=== PATIENT | female | born 1935 | race Caucasian/White ===

== ENCOUNTER 2023-10-04 20:03 | Inpatient (IN) | payer MEDICARE, OTHER ==
[2023-10-04] MEDS ORDERED: IPRATROPIUM-ALBUTEROL 3 ML NEB INHALATION STA (21:42)
[2023-10-04] MEDS ORDERED: SODIUM CHLORIDE 0.9% 500 ML 500 ML IV ONE (21:42)
--- NOTE | 2023-10-04 21:43 | ED ---
General Adult HPI - General Chief complaint: Urogenital Stated complaint: UTI Time Seen by Provider: 10/04/23 21:28 Source: EMS, RN notes reviewed Mode of arrival: EMS Limitations: no limitations - History of Present Illness Initial comments: 87-year-old female presents emergency Department with chief complaint of UTI, weakness symptoms started today. Patient's granddaughter in the room states that she was on Macrobid for UTI 2 weeks ago. She states that she was started on Bactrim today. Patient admits to feeling generally weak and fatigued. She also admits to some increased shortness of breath with movement. She also admit to recent cough and chills. She does have history of COPD. - Related Data Home Medications Medication Instructions Recorded Confirmed Aspirin EC [Ecotrin Low Dose] 81 mg PO DAILY 10/04/23 10/04/23 Azelastine HCl [Astelin Nasal 1 spray EA NOSTRIL BID 10/04/23 10/04/23 [place]] Cyclobenzaprine [Flexeril] 10 mg PO BID PRN 10/04/23 10/04/23 Fluticasone Nasal [place] [Flonase 2 spray EA NOSTRIL DAILY 10/04/23 10/04/23 Nasal [place]] Ipratropium/Albuter 20-100Mcg 1 puff INHALATION RT-BID 10/04/23 10/04/23 [Combivent Respimat 20-100Mcg Inhaler] Loratadine [Claritin] 10 mg PO DAILY PRN 10/04/23 10/04/23 OXcarbazepine [Trileptal] 600 mg PO BID 10/04/23 10/04/23 Pramipexole [Mirapex] 2 mg PO DAILY PRN 10/04/23 10/04/23 Pravastatin Sodium [Pravachol] 20 mg PO DAILY 10/04/23 10/04/23 Sulfamethox-Tmp 800-160Mg [Bactrim 1 tab PO Q12HR 10/04/23 10/04/23 DS 800-160 mg] Tolterodine ER [Detrol LA] 4 mg PO DAILY 10/04/23 10/04/23 atenoloL [Tenormin] 50 mg PO DAILY 10/04/23 10/04/23 oxyCODONE-APAP 7.5-325MG [Percocet 1 tab PO BID 10/04/23 10/04/23 7.5-325 mg] Allergies Allergy/AdvReac Type Severity Reaction Status Date / Time Tetanus Vaccines and Toxoid Allergy Unknown Verified 10/04/23 22:57 Childhood Review of Systems ROS Statement: Those systems with pertinent positive or pertinent negative responses have been documented in the HPI. ROS Other: All systems not noted in ROS Statement are negative. Past Medical History Past Medical History: Unable to Obtain History of Any Multi-Drug Resistant Organisms: Unobtainable Past Surgical History: Unable to Obtain Past Psychological History: Unable to Obtain Smoking Status: Current every day smoker Past Alcohol Use History: None Reported Past Drug Use History: None Reported General Exam Limitations: no limitations General appearance: alert, in no apparent distress Head exam: Present: atraumatic, normocephalic, normal inspection Eye exam: Present: normal appearance, PERRL, EOMI. Absent: scleral icterus, conjunctival injection, periorbital swelling ENT exam: Present: normal exam, mucous membranes moist Neck exam: Present: normal inspection. Absent: tenderness, meningismus, lymphadenopathy Respiratory exam: Present: wheezes Cardiovascular Exam: Present: regular rate, normal rhythm, normal heart sounds. Absent: systolic murmur, diastolic murmur, rubs, gallop, clicks GI/Abdominal exam: Present: soft, normal bowel sounds. Absent: distended, tenderness, guarding, rebound, rigid Extremities exam: Present: normal inspection, full ROM, normal capillary refill. Absent: tenderness, pedal edema, joint swelling, calf tenderness Back exam: Present: normal inspection Neurological exam: Present: alert, oriented X3 Psychiatric exam: Present: normal affect, normal mood Skin exam: Present: warm, dry, intact, normal color. Absent: rash Course Vital Signs 10/04/23 10/04/23 10/04/23 20:09 22:26 22:32 Temperature 98.5 F Pulse Rate 91 96 99 Respiratory 20 Rate Blood Pressure O2 Sat by Pulse 96 Oximetry 10/04/23 10/04/23 10/05/23 23:00 23:47 00:49 Temperature 99.8 F H 98.1 F Pulse Rate 91 93 Respiratory 19 17 Rate Blood Pressure 138/84 126/74 O2 Sat by Pulse 94 L 95 Oximetry Medical Decision Making - Medical Decision Making Was pt. sent in by a medical professional or institution (Dr., PA, [employer], urgent care, hospital, or fci...) When possible be specific @ -No Did you speak to anyone other than the patient for history (EMS, parent, family, police, friend...)? What history was obtained from this source @ -No Did you review nursing and triage notes (agree or disagree)? Why? @ -I reviewed and agree with nursing and triage notes Were old charts reviewed (outside hosp., previous admission, EMS record, old EKG, old radiological studies, urgent care reports/EKG's, fci records)? Report findings @ -No old charts were reviewed Differential Diagnosis (chest pain, altered mental status, abdominal pain women, abdominal pain men, vaginal bleeding, weakness, fever, dyspnea, syncope, headache, dizziness, GI bleed, back pain, seizure, CVA, palpatations, mental health, musculoskeletal)? @ -Differential Weakness: Hypoglycemia, shock, sepsis, hyponatremia, anemia, infection, MA, ETOH, adverse medicine reaction, overdose, stroke, this is not meant to be an all-inclusive list. EKG interpreted by me (3pts min.). @ -EKG at 2214 shows sinus rhythm rate 82, MI 136, QRS 80, QTQTc [id number] X-rays interpreted by me (1pt min.). @ -Chest x-ray shows. Small patchy opacities in the right upper lung and left mid to lower lung laterally, possible nodules, airspace disease versus overlapping structures as interpreted by the radiologist CT interpreted by me (1pt min.). @ -None done U/S interpreted by me (1pt. min.). @ -None done What testing was considered but not performed or refused? (CT, X-rays, U/S, labs)? Why? @ -None What meds were considered but not given or refused? Why? @ -None Did you discuss the management of the patient with other professionals (professionals i.e. [facility], [employer], lab, RT, psych nurse, mental health social worker, russian rubber, teacher, chief growth officer, family independence case manager)? Give summary @ -Case discussed with Dr. Alan who is accepting of the admission Was smoking cessation discussed for >3mins.? @ -No Was critical care preformed (if so, how long)? @ -No Were there social determinants of health that impacted care today? How? (Homelessness, low income, unemployed, alcoholism, drug addiction, transportation, low edu. Level, literacy, decrease access to med. care, senior living, rehab)? @ -No Was there de-escalation of care discussed even if they declined (Discuss DNR or withdrawal of care, Hospice)? DNR status @ -No What co-morbidities impacted this encounter? (DM, HTN, Smoking, COPD, CAD, Cancer, CVA, ARF, Chemo, Hep., AIDS, mental health diagnosis, sleep apnea, morbid obesity)? @ -None Was patient admitted / discharged? Hospital course, mention meds given and route, prescriptions, significant lab abnormalities, going to OR and other pertinent info. @ -Admitted. Patient presented to emergency department for chief complaint of UTI, weakness. Symptoms started today. Laboratory studies showed WBC 12.3, hemoglobin 11.3; PTT 11.1, INR 1; CMP shows sodium 132, potassium 3.1. Patient was started on potassium replacement, K-Dur 20 milligrams. Magnesium 1.7 BNP 2230; Covid, influenza, RSV negative; UA shows 1+ protein, moderate blood, large leukocyte esterase, 161 wbc's. She will be admitted for IV antibiotics, electrolyte abnormalities. Case discussed with Dr. Alan who is accepting of the admission. Patient stable at time of admission. Case discussed with Dr. Pittman, [facility]. Undiagnosed new problem with uncertain prognosis? @ -No Drug Therapy requiring intensive monitoring for toxicity (Heparin, Nitro, Insulin, Cardizem)? @ -No Were any procedures done? @ -No Diagnosis/symptom? @ -UTI, pneumonia Acute, or Chronic, or Acute on Chronic? @ -acute Uncomplicated (without systemic symptoms) or Complicated (systemic symptoms)? @ -uncomplicated Side effects of treatment? @ -No Exacerbation, Progression, or Severe Exacerbation? @ -No Poses a threat to life or bodily function? How? (Chest pain, USA, MA, pneumonia, PE, COPD, DKA, ARF, appy, cholecystitis, CVA, Diverticulitis, Homicidal, Suicidal, threat to staff... and all critical care pts) @ -No - Lab Data Result diagrams: 10/04/23 21:53 10/04/23 21:53 Lab Results 10/04/23 10/04/23 10/04/23 Range/Units 21:53 21:53 21:53 WBC 12.3 H (3.8-10.6) k/uL RBC 3.43 L (3.80-5.40) m/uL Hgb 11.3 L (11.4-16.0) gm/dL Hct 33.0 L (34.0-46.0) % MCV 96.2 (80.0-100.0) fL MCH 32.9 (25.0-35.0) pg MCHC 34.2 (31.0-37.0) g/dL RDW 13.8 (11.5-15.5) % Plt Count 173 (150-450) k/uL MPV 10.4 Neutrophils % 82 % Lymphocytes % 10 % Monocytes % 5 % Eosinophils % 1 % Basophils % 0 % Neutrophils # 10.1 H (1.3-7.7) k/uL Lymphocytes # 1.3 (1.0-4.8) k/uL Monocytes # 0.6 (0-1.0) k/uL Eosinophils # 0.1 (0-0.7) k/uL Basophils # 0.0 (0-0.2) k/uL PT 11.1 (10.0-12.5) sec INR 1.0 (<1.2) APTT 24.6 (22.0-30.0) sec Sodium 132 L (137-145) mmol/L Potassium 3.1 L (3.5-5.1) mmol/L Chloride 102 (98-107) mmol/L Carbon Dioxide 19 L (22-30) mmol/L Anion Gap 11 mmol/L BUN 19 H (7-17) mg/dL Creatinine 0.79 (0.52-1.04) mg/dL Est GFR (CKD-EPI)AfAm 80 (>60 ml/min/1.73 sqM) Est GFR (CKD-EPI)NonAf 69 (>60 ml/min/1.73 sqM) Glucose 125 H (74-99) mg/dL Plasma Lactic Acid Cristóbal (0.7-2.0) mmol/L Calcium 8.4 (8.4-10.2) mg/dL Magnesium (1.6-2.3) mg/dL Total Bilirubin 1.0 (0.2-1.3) mg/dL AST 26 (14-36) U/L ALT 23 (4-34) U/L Alkaline Phosphatase 56 (38-126) U/L NT-Pro-B Natriuret Pep 2230 pg/mL Total Protein 5.8 L (6.3-8.2) g/dL Albumin 3.1 L (3.5-5.0) g/dL Urine Color Urine Appearance (Clear) Urine pH (5.0-8.0) Ur Specific [place] (1.001-1.035) Urine Protein (Negative) Urine Glucose (UA) (Negative) Urine Ketones (Negative) Urine Blood (Negative) Urine Nitrite (Negative) Urine Bilirubin (Negative) Urine Urobilinogen (<2.0) mg/dL Ur Leukocyte Esterase (Negative) Urine RBC (0-5) /hpf Urine WBC (0-5) /hpf Urine WBC Clumps (None) /hpf Ur Squamous Epith Cells (0-4) /hpf Amorphous Sediment (None) /hpf Urine Bacteria (None) /hpf Hyaline Casts (0-2) /lpf Influenza Type A (PCR) (Not Detectd) Influenza Type B (PCR) (Not Detectd) RSV (PCR) (Not Detectd) SARS-CoV-2 (PCR) (Not Detectd) 10/04/23 10/04/23 10/04/23 Range/Units 21:53 21:53 22:34 WBC (3.8-10.6) k/uL RBC (3.80-5.40) m/uL Hgb (11.4-16.0) gm/dL Hct (34.0-46.0) % MCV (80.0-100.0) fL MCH (25.0-35.0) pg MCHC (31.0-37.0) g/dL RDW (11.5-15.5) % Plt Count (150-450) k/uL MPV Neutrophils % % Lymphocytes % % Monocytes % % Eosinophils % % Basophils % % Neutrophils # (1.3-7.7) k/uL Lymphocytes # (1.0-4.8) k/uL Monocytes # (0-1.0) k/uL Eosinophils # (0-0.7) k/uL Basophils # (0-0.2) k/uL PT (10.0-12.5) sec INR (<1.2) APTT (22.0-30.0) sec Sodium (137-145) mmol/L Potassium (3.5-5.1) mmol/L Chloride (98-107) mmol/L Carbon Dioxide (22-30) mmol/L Anion Gap mmol/L BUN (7-17) mg/dL Creatinine (0.52-1.04) mg/dL Est GFR (CKD-EPI)AfAm (>60 ml/min/1.73 sqM) Est GFR (CKD-EPI)NonAf (>60 ml/min/1.73 sqM) Glucose (74-99) mg/dL Plasma Lactic Acid Crist[place]bal 1.0 (0.7-2.0) mmol/L Calcium (8.4-10.2) mg/dL Magnesium 1.7 (1.6-2.3) mg/dL Total Bilirubin (0.2-1.3) mg/dL AST (14-36) U/L ALT (4-34) U/L Alkaline Phosphatase (38-126) U/L NT-Pro-B Natriuret Pep pg/mL Total Protein (6.3-8.2) g/dL Albumin (3.5-5.0) g/dL Urine Color Urine Appearance (Clear) Urine pH (5.0-8.0) Ur Specific [place] (1.001-1.035) Urine Protein (Negative) Urine Glucose (UA) (Negative) Urine Ketones (Negative) Urine Blood (Negative) Urine Nitrite (Negative) Urine Bilirubin (Negative) Urine Urobilinogen (<2.0) mg/dL Ur Leukocyte Esterase (Negative) Urine RBC (0-5) /hpf Urine WBC (0-5) /hpf Urine WBC Clumps (None) /hpf Ur Squamous Epith Cells (0-4) /hpf Amorphous Sediment (None) /hpf Urine Bacteria (None) /hpf Hyaline Casts (0-2) /lpf Influenza Type A (PCR) Not Detected (Not Detectd) Influenza Type B (PCR) Not Detected (Not Detectd) RSV (PCR) Not Detected (Not Detectd) SARS-CoV-2 (PCR) Not Detected (Not Detectd) 10/05/23 Range/Units 00:29 WBC (3.8-10.6) k/uL RBC (3.80-5.40) m/uL Hgb (11.4-16.0) gm/dL Hct (34.0-46.0) % MCV (80.0-100.0) fL MCH (25.0-35.0) pg MCHC (31.0-37.0) g/dL RDW (11.5-15.5) % Plt Count (150-450) k/uL MPV Neutrophils % % Lymphocytes % % Monocytes % % Eosinophils % % Basophils % % Neutrophils # (1.3-7.7) k/uL Lymphocytes # (1.0-4.8) k/uL Monocytes # (0-1.0) k/uL Eosinophils # (0-0.7) k/uL Basophils # (0-0.2) k/uL PT (10.0-12.5) sec INR (<1.2) APTT (22.0-30.0) sec Sodium (137-145) mmol/L Potassium (3.5-5.1) mmol/L Chloride (98-107) mmol/L Carbon Dioxide (22-30) mmol/L Anion Gap mmol/L BUN (7-17) mg/dL Creatinine (0.52-1.04) mg/dL Est GFR (CKD-EPI)AfAm (>60 ml/min/1.73 sqM) Est GFR (CKD-EPI)NonAf (>60 ml/min/1.73 sqM) Glucose (74-99) mg/dL Plasma Lactic Acid [place] (0.7-2.0) mmol/L Calcium (8.4-10.2) mg/dL Magnesium (1.6-2.3) mg/dL Total Bilirubin (0.2-1.3) mg/dL AST (14-36) U/L ALT (4-34) U/L Alkaline Phosphatase (38-126) U/L NT-Pro-B Natriuret Pep pg/mL Total Protein (6.3-8.2) g/dL Albumin (3.5-5.0) g/dL Urine Color Light Red Urine Appearance Turbid H (Clear) Urine pH 7.0 (5.0-8.0) Ur Specific [place] 1.012 (1.001-1.035) Urine Protein 1+ H (Negative) Urine Glucose (UA) Negative (Negative) Urine Ketones Negative (Negative) Urine Blood Moderate H (Negative) Urine Nitrite Negative (Negative) Urine Bilirubin Negative (Negative) Urine Urobilinogen 4.0 (<2.0) mg/dL Ur Leukocyte Esterase Large H (Negative) Urine RBC 20 H (0-5) /hpf Urine WBC 161 H (0-5) /hpf Urine WBC Clumps Rare H (None) /hpf Ur Squamous Epith Cells 17 H (0-4) /hpf Amorphous Sediment Rare H (None) /hpf Urine Bacteria Many H (None) /hpf Hyaline Casts 5 H (0-2) /lpf Influenza Type A (PCR) (Not Detectd) Influenza Type B (PCR) (Not Detectd) RSV (PCR) (Not Detectd) SARS-CoV-2 (PCR) (Not Detectd) Disposition Clinical Impression: Urinary tract infection, Infiltrate noted on imaging study Disposition: ADMITTED IP TO THIS HOSP Condition: Stable Is patient prescribed a controlled substance at d/c from ED?: No Referrals: Nonstaff,Physician [REFERRING] - 1-2 days
[2023-10-04 22:17] LABS: Basophils % (A) 0 %; Eosinophils # (A) 0.1 k/uL (0-0.7); Eosinophils % (A) 1 %; HGB 11.3 gm/dL (11.4-16.0); Lymphocytes # (A) 1.3 k/uL (1.0-4.8); Lymphocytes % (A) 10 %; MCH 32.9 pg (25.0-35.0); MCHC 34.2 g/dL (31.0-37.0); MCV 96.2 fL (80.0-100.0); Mean Platelet Volume 10.4; Monocytes # (A) 0.6 k/uL (0-1.0); Monocytes % (A) 5 %; Neutrophils # (A) 10.1 k/uL (1.3-7.7); Neutrophils % (A) 82 %; Platelet Count 173 k/uL (150-450); RBC 3.43 m/uL (3.80-5.40); RDW 13.8 % (11.5-15.5); WBC 12.3 k/uL (3.8-10.6)
[2023-10-04 22:30] LABS: ALT 23 U/L (4-34); AST 26 U/L (14-36); African American GFR (CKD) 80 (>60 ml/min/1.73 sqM); Albumin 3.1 g/dL (3.5-5.0); Alkaline Phosphatase 56 U/L (38-126); Anion Gap 11 mmol/L; Blood Urea Nitrogen 19 mg/dL (7-17); Calcium 8.4 mg/dL (8.4-10.2); Carbon Dioxide 19 mmol/L (22-30); Chloride 102 mmol/L (98-107); Glucose 125 mg/dL (74-99); Non-African American GFR(CKD) 69 (>60 ml/min/1.73 sqM); Potassium 3.1 mmol/L (3.5-5.1); Sodium 132 mmol/L (137-145); Total Protein 5.8 g/dL (6.3-8.2)
[2023-10-04] MEDS ORDERED: Potassium Replacement Protocol 1 EACH MISC MISCELLANE PRN (22:32)
[2023-10-04 22:37] LABS: Partial Thromboplastin Time 24.6 sec (22.0-30.0); Prothrombin Time 11.1 sec (10.0-12.5)
[2023-10-04 22:38] LABS: NT-Pro-B-Type Natriuretic Pept 2230 pg/mL
[2023-10-04] MEDS: POTASSIUM CHLORIDE ER 20 MEQ TAB.ER PO SCH (22:45)
[2023-10-04] MEDS ORDERED: ACETAMINOPHEN TAB 325 MG TAB PO STA (23:32)
[2023-10-04] MEDS ORDERED: IBUPROFEN 600 MG TAB PO STA (23:49)
[2023-10-05] MEDS ORDERED: OXcarbazepine 300 MG TAB PO STA (00:04)
[2023-10-05] MEDS ORDERED: oxyCODONE-APAP 7.5-325MG 1 EACH TAB PO STA (00:05)
[2023-10-05] MEDS: POTASSIUM CHLORIDE ER 20 MEQ TAB.ER PO SCH (00:10)
--- NOTE | 2023-10-05 00:25 | XR ---
EXAM: XR Chest, 2 Views CLINICAL HISTORY: ITS.REASON XR Reason: cough TECHNIQUE: Frontal and lateral views of the chest. COMPARISON: No relevant prior studies available. FINDINGS: Lungs: Low lung volumes. Prominent central pulmonary vasculature. Increased interstitial markings/chronic changes. Query small patchy opacities in the right upper lung and left mid to lower lung laterally. Pleural space: Unremarkable. No pneumothorax. Heart: Unremarkable. No cardiomegaly. Mediastinum: Unremarkable. Bones/joints: Degenerative changes of the spine. Mild anterior wedging of mid thoracic vertebral body, age indeterminate. Vasculature: Aortic calcifications. IMPRESSION: Query small patchy opacities in the right upper lung and left mid to lower lung laterally. Possible nodules, airspace disease versus overlapping structures. Correlate with priors if available and consider CT.
[2023-10-05 01:06] LABS: Amorphous Sediment,Urine Rare /hpf; Appearance,Urine Turbid (Clear); Bacteria,Urine Many /hpf; Bilirubin,Urine Negative (Negative); Blood,Urine Moderate (Negative); Color,Urine Light Red; Glucose,Urine (UA) Negative (Negative); Hyaline Casts,Urine 5 /lpf (0-2); Ketones,Urine Negative (Negative); Leukocyte Esterase,Urine Large (Negative); Nitrite,Urine Negative (Negative); Protein,Urine 1+ (Negative); RBC,Urine 20 /hpf (0-5); Specific Gravity,Urine 1.012 (1.001-1.035); Squamous Epithelial Cell,Urine 17 /hpf (0-4); WBC,Urine 161 /hpf (0-5)
[2023-10-05] MEDS ORDERED: AZITHROMYCIN 500 MG in SODIUM CHLORIDE 0.9% 250 ML IVPB STA (01:19)
[2023-10-05] MEDS ORDERED: HYDROcodone/APAP 5-325MG 1 EACH TAB PO PRN (01:28)
[2023-10-05] MEDS ORDERED: IBUPROFEN 400 MG TAB PO PRN (01:28)
[2023-10-05] MEDS ORDERED: NALOXONE 0.4 MG/ML 1 ML VIAL IV PRN (01:28)
[2023-10-05] MEDS: SODIUM CHLORIDE 0.9% 1,000 ML IV SCH ×2 (01:36→17:01)
[2023-10-05] MEDS ORDERED: CYCLOBENZAPRINE 10 MG TAB PO PRN (10:57)
[2023-10-05] MEDS ORDERED: PRAMIPEXOLE 1 MG TAB PO PRN (10:57)
[2023-10-05] MEDS: oxyCODONE-APAP 7.5-325MG 1 EACH TAB PO SCH ×2 (11:56→20:49)
[2023-10-05] MEDS: ENOXAPARIN 40 MG/0.4 ML SYRINGE SQ SCH (11:57)
[2023-10-05] MEDS: ASPIRIN 81 MG PO SCH (11:57)
[2023-10-05] MEDS: OXcarbazepine 300 MG TAB PO SCH ×2 (11:57→21:27)
[2023-10-05] MEDS: OXYBUTYNIN XL 5 MG TAB.ER.24 PO SCH (11:57)
[2023-10-05] MEDS ORDERED: IPRATROPIUM-ALBUTEROL 3 ML NEB INHALATION SCH (12:00)
[2023-10-05] MEDS: PRAVASTATIN SODIUM 20 MG TAB PO SCH (12:14)
[2023-10-05] MEDS ORDERED: LACTULOSE 20 GM/30 ML CUP PO PRN (12:32)
[2023-10-05] MEDS ORDERED: CALCIUM CARBONATE 500 MG CHEWABLE PO PRN (12:32)
[2023-10-05] MEDS ORDERED: ONDANSETRON 4 MG/2 ML VIAL IVP PRN (12:32)
[2023-10-05] MEDS ORDERED: ALPRAZolam 0.25 MG TAB PO PRN (12:32)
[2023-10-05] MEDS ORDERED: MELATONIN 3 MG TABLET PO PRN (12:32)
[2023-10-05] MEDS: guaiFENesin 600 MG TABLET.ER PO SCH ×3 (13:43→21:27)
[2023-10-05] MEDS: methylPREDNISolone SOD SUCCI 40 MG/ML 1 ML VIAL IV SCH ×3 (13:44→21:27)
[2023-10-05] MEDS: FORMOTEROL FUMARATE 20 MCG/2 ML NEBU INHALATION SCH ×2 (14:13→19:56)
[2023-10-05] MEDS: BUDESONIDE 1 MG/2 ML NEBU INHALATION SCH ×2 (14:13→19:56)
[2023-10-05] MEDS: IPRATROPIUM-ALBUTEROL 3 ML NEB INHALATION SCH ×2 (15:10→19:56)
[2023-10-05] MEDS ORDERED: POTASSIUM CHLORIDE ER 20 MEQ TAB.ER PO STA (16:15)
--- NOTE | 2023-10-05 16:15 | P.HPIM ---
History of Present Illness H&P Date: 10/05/23 Chief Complaint: Short of breath This is a very pleasant 87-year-old patient follows with Dr. Andres Sunshine. Chronic stable medical conditions includes seizures, osteoarthritis particularly in the lower back, trigeminal neuralgia, urinary incontinence. Has a history of COPD with chronic bronchitis. Patient with a baseline has a cough and some shortness of breath. Presents with increasing weakness. Was treated outpatient with antibiotics for his recent UTI. Last 3 days has not really eaten anything. Remains very short of breath. Wheezing. Producing sputum not colored. Denies any obvious fever and chills that started and rundown. Denies any dysuria or urinary frequency currently. Though chronically incontinent Review of systems: GEN.: Decrease appetite weak and tired EYES: None HEENT: None NECK: None RESPIRATORY: As above CARDIOVASCULAR: None GASTROINTESTINAL: None GENITOURINARY: None MUSCULOSKELETAL: Joint pains LYMPHATICS: None HEMATOLOGICAL: None PSYCHIATRY: None NEUROLOGICAL: Does use a walker Past medical history to include: Seizure disorder, osteoarthritis, trigeminal neuralgia, COPD, urinary incontinence, Social history: Lives alone. Does use a walker. Did smoke in the past. No alcohol. Physical examination: VITAL SIGNS: 98.5, 91, 20, 138/84, 94% room air GENERAL: BMI 26.6, sitting up in bed, short of breath EYES: Pupils equal. Conjunctiva normal. HEENT: External appearance of nose and ears normal, oral cavity grossly normal. NECK: JVD not raised; masses not palpable. HEART: First and second heart sounds are normal; no edema. LUNGS: Respiratory rate increased, diminished breath sounds prolonged expiration and wheezing, unable to speak in full sentences, accessory muscles of working;. ABDOMEN: Soft, nontender, liver spleen not palpable, no masses palpable. PSYCH: Alert and oriented x3; mood and affect anxiousl. MUSCULOSKELETAL:No Clubbing/cyanosis;muscles-grossly intact. OA. NEUROLOGICAL: Cranial nerves grossly intact; no facial asymmetry, power and sensation grossly intact. LYMPHATICS: No lymph nodes palpable in the axilla and neck INVESTIGATIONS, reviewed in the clinical context: October 04: White count 12.3 hemoglobin 11.3 platelets 173 sodium 132 potassium 3.1 BUN 19 creatinine 0.79 UA: Leukoesterase positive nitrite negative WBC 161 squamous epithelial cells 17 Influenza type A, B, RSV, COVID-19: Not detected EKG tracing personally reviewed by me-normal sinus rhythm. ST segment dep ression in inferior leads Chest x-ray film personally reviewed by me-some infiltrate Assessment and plan: -Pneumonia suspect gram-negative organism IV ceftriaxone. -Acute severe COPD exacerbation with chronic bronchitis and a prior smoker DuoNeb every 4. Perforomist and Pulmicort nebulized. IV Solu-Medrol. -Recently treated outpatient for UTI Current UTI showing negative for nitrite -Acute on chronic medical debility from above -Chronic medical debility, uses a walker at baseline -Trigeminal neuralgia Trileptal -Muscle spasms Flexeril when necessary -Restless leg syndrome Mirapex when necessary -Primary osteoarthritis multiple joints including lower back Percocet 7.5 twice a day, -Hyperlipidemia Pravachol 20 mg a day -Essential hypertension Lopressor -Full code Care was discussed with the patient. Questions answered. Given the complexity and severity of patient's condition expect the patient to be in the hospital at least for 2 overnights Past Medical History Past Medical History: Unable to Obtain History of Any Multi-Drug Resistant Organisms: Unobtainable Past Surgical History: Unable to Obtain Past Psychological History: Unable to Obtain Smoking Status: Current every day smoker Past Alcohol Use History: None Reported Past Drug Use History: None Reported Medications and Allergies Home Medications Medication Instructions Recorded Confirmed Type Aspirin EC [Ecotrin Low Dose] 81 mg PO DAILY 10/04/23 10/04/23 History Azelastine HCl [Astelin Nasal 1 spray EA NOSTRIL BID 10/04/23 10/04/23 History [place]] Cyclobenzaprine [Flexeril] 10 mg PO BID PRN 10/04/23 10/04/23 History Fluticasone Nasal [place] [Flonase 2 spray EA NOSTRIL DAILY 10/04/23 10/04/23 History Nasal [place]] Ipratropium/Albuter 20-100Mcg 1 puff INHALATION RT-BID 10/04/23 10/04/23 History [Combivent Respimat 20-100Mcg Inhaler] Loratadine [Claritin] 10 mg PO DAILY PRN 10/04/23 10/04/23 History OXcarbazepine [Trileptal] 600 mg PO BID 10/04/23 10/04/23 History Pramipexole [Mirapex] 2 mg PO DAILY PRN 10/04/23 10/04/23 History Pravastatin Sodium [Pravachol] 20 mg PO DAILY 10/04/23 10/04/23 History Sulfamethox-Tmp 800-160Mg [Bactrim 1 tab PO Q12HR 10/04/23 10/04/23 History DS 800-160 mg] Tolterodine ER [Detrol LA] 4 mg PO DAILY 10/04/23 10/04/23 History atenoloL [Tenormin] 50 mg PO DAILY 10/04/23 10/04/23 History oxyCODONE-APAP 7.5-325MG [Percocet 1 tab PO BID 10/04/23 10/04/23 History 7.5-325 mg] Allergies Allergy/AdvReac Type Severity Reaction Status Date / Time Tetanus Vaccines and Toxoid Allergy Unknown Verified 10/04/23 22:57 Childhood Physical Exam Vitals: Vital Signs Temp Pulse Resp BP Pulse Ox 10/05/23 15:17 77 18 10/05/23 15:11 81 18 10/05/23 12:07 76 18 10/05/23 12:00 75 18 96 10/05/23 11:54 77 18 123/45 96 10/05/23 10:33 77 18 111/77 98 10/05/23 09:19 69 18 128/72 98 10/05/23 07:55 98.3 F 71 18 118/57 95 10/05/23 07:03 64 17 112/54 97 10/05/23 06:40 66 17 97/47 94 L 10/05/23 04:00 80 18 111/51 96 10/05/23 03:29 82 19 130/58 94 L 10/05/23 01:25 79 17 127/71 92 L 10/05/23 00:49 98.1 F 93 17 126/74 95 10/04/23 23:47 91 19 138/84 94 L 10/04/23 23:00 99.8 F H 10/04/23 22:32 99 10/04/23 22:26 96 10/04/23 20:09 98.5 F 91 20 96 Results CBC & Chem 7: 10/04/23 21:53 10/04/23 21:53 Labs: Abnormal Lab Results - Last 24 Hours (Table) 10/04/23 10/04/23 10/05/23 Range/Units 21:53 21:53 00:29 WBC 12.3 H (3.8-10.6) k/uL RBC 3.43 L (3.80-5.40) m/uL Hgb 11.3 L (11.4-16.0) gm/dL Hct 33.0 L (34.0-46.0) % Neutrophils # 10.1 H (1.3-7.7) k/uL Sodium 132 L (137-145) mmol/L Potassium 3.1 L (3.5-5.1) mmol/L Carbon Dioxide 19 L (22-30) mmol/L BUN 19 H (7-17) mg/dL Glucose 125 H (74-99) mg/dL Total Protein 5.8 L (6.3-8.2) g/dL Albumin 3.1 L (3.5-5.0) g/dL Urine Appearance Turbid H (Clear) Urine Protein 1+ H (Negative) Urine Blood Moderate H (Negative) Ur Leukocyte Esterase Large H (Negative) Urine RBC 20 H (0-5) /hpf Urine WBC 161 H (0-5) /hpf Urine WBC Clumps Rare H (None) /hpf Ur Squamous Epith Cells 17 H (0-4) /hpf Amorphous Sediment Rare H (None) /hpf Urine Bacteria Many H (None) /hpf Hyaline Casts 5 H (0-2) /lpf
[2023-10-06] MEDS: SODIUM CHLORIDE 0.9% 1,000 ML IV SCH ×2 (05:42→22:03)
[2023-10-06] MEDS: methylPREDNISolone SOD SUCCI 40 MG/ML 1 ML VIAL IV SCH ×3 (05:42→21:37)
[2023-10-06 07:25] LABS: African American GFR (CKD) >90 (>60 ml/min/1.73 sqM); Anion Gap 8 mmol/L; Blood Urea Nitrogen 18 mg/dL (7-17); Calcium 8.1 mg/dL (8.4-10.2); Carbon Dioxide 19 mmol/L (22-30); Chloride 109 mmol/L (98-107); Glucose 86 mg/dL (74-99); Non-African American GFR(CKD) 81 (>60 ml/min/1.73 sqM); Sodium 136 mmol/L (137-145)
[2023-10-06] MEDS: FORMOTEROL FUMARATE 20 MCG/2 ML NEBU INHALATION SCH ×2 (07:25→19:22)
[2023-10-06] MEDS: IPRATROPIUM-ALBUTEROL 3 ML NEB INHALATION SCH ×4 (07:25→19:22)
[2023-10-06] MEDS: BUDESONIDE 1 MG/2 ML NEBU INHALATION SCH ×2 (07:25→19:23)
[2023-10-06 07:27] LABS: Potassium 5.6 mmol/L (3.5-5.1)
[2023-10-06] MEDS: OXcarbazepine 300 MG TAB PO SCH ×2 (09:01→21:37)
[2023-10-06] MEDS: OXYBUTYNIN XL 5 MG TAB.ER.24 PO SCH (09:01)
[2023-10-06] MEDS: PRAVASTATIN SODIUM 20 MG TAB PO SCH (09:01)
[2023-10-06] MEDS: guaiFENesin 600 MG TABLET.ER PO SCH ×4 (09:02→21:37)
[2023-10-06] MEDS: oxyCODONE-APAP 7.5-325MG 1 EACH TAB PO SCH ×2 (09:02→21:38)
[2023-10-06] MEDS: ENOXAPARIN 40 MG/0.4 ML SYRINGE SQ SCH (09:02)
[2023-10-06] MEDS: ASPIRIN 81 MG PO SCH (09:02)
[2023-10-06] MEDS ORDERED: SODIUM POLYSTYRENE SULFONATE 15 GM/60 ML BOTTLE PO STA (15:59)
--- NOTE | 2023-10-06 16:08 | P.PN ---
Progress Note - Text Progress Note Date: 10/06/23 Chief Complaint: Short of breath This is a very pleasant 87-year-old patient follows with Dr. Andres Sunshine. Chronic stable medical conditions includes seizures, osteoarthritis particularly in the lower back, trigeminal neuralgia, urinary incontinence. Has a history of COPD with chronic bronchitis. Patient with a baseline has a cough and some shortness of breath. Presents with increasing weakness. Was treated outpatient with antibiotics for his recent UTI. Last 3 days has not really eaten anything. Remains very short of breath. Wheezing. Producing sputum not colored. Denies any obvious fever and chills that started and rundown. Denies any dysuria or urinary frequency currently. Though chronically incontinent October 06: Appears a bit better. Breathing some improvement. The patient herself feels tired. IV ceftriaxone. IV Solu-Medrol. DuoNeb. Eating some. Granddaughter at the bedside. Active Medications Hydrocodone Bitart/Acetaminophen (Hydrocodone/Apap 5-325mg 1 Each Tab) 1 each PO Q4HR PRN PRN Reason: Moderate Pain (Scale 4 to 6) Last Admin: 10/05/23 08:02 Dose: 1 each Albuterol/Ipratropium (Ipratropium-Albuterol 3 Ml Neb) 3 ml INHALATION RT-QID [facility] Last Admin: 10/06/23 14:47 Dose: 3 ml Alprazolam (Alprazolam 0.25 Mg Tab) 0.25 mg PO Q6HR PRN PRN Reason: Anxiety Aspirin (Aspirin 81 Mg) 81 mg PO DAILY [facility] Last Admin: 10/06/23 09:02 Dose: 81 mg Budesonide (Budesonide 1 Mg/2 Ml Nebu) 1 mg INHALATION RT-BID [facility] Last Admin: 10/06/23 07:25 Dose: 1 mg Calcium Carbonate/Glycine (Calcium Carbonate 500 Mg Chewable) 1,000 mg PO Q4HR PRN PRN Reason: Dyspepsia Cyclobenzaprine HCl (Cyclobenzaprine 10 Mg Tab) 10 mg PO BID PRN PRN Reason: Muscle Spasm Enoxaparin Sodium (Enoxaparin 40 Mg/0.4 Ml Syringe) 40 mg SQ DAILY [facility] Last Admin: 10/06/23 09:02 Dose: 40 mg Formoterol Fumarate (Formoterol Fumarate 20 Mcg/2 Ml Nebu) 20 mcg INHALATION RT-BID [facility] Last Admin: 10/06/23 07:25 Dose: 20 mcg Guaifenesin (Guaifenesin 600 Mg Tablet.Er) 600 mg PO QID [facility] Last Admin: 10/06/23 14:25 Dose: 600 mg Sodium Chloride (Saline 0.9%) 1,000 mls @ 75 mls/hr IV .[id number] [facility] Last Admin: 10/06/23 05:42 Dose: 75 mls/hr Ceftriaxone Sodium 1 gm/ (Sodium Chloride) 50 mls @ 100 mls/hr IVPB Q12HR [facility]; Protocol Last Admin: 10/06/23 09:01 Dose: 100 mls/hr Ibuprofen (Ibuprofen 400 Mg Tab) 400 mg PO Q6HR PRN PRN Reason: Mild Pain or Fever > 100.5 Lactulose (Lactulose 20 Gm/30 Ml Cup) 20 gm PO DAILY PRN PRN Reason: Constipation Melatonin (Melatonin 3 Mg Tablet) 3 mg PO HS PRN PRN Reason: Insomnia Methylprednisolone Sodium Succinate (Methylprednisolone Sod Succi 40 Mg/Ml 1 Ml Vial) 40 mg IV Q8H [facility] Last Admin: 10/06/23 14:25 Dose: 40 mg Miscellaneous Information (Potassium Replacement Protocol 1 Each Misc) 1 each MISCELLANE DAILY PRN; Protocol PRN Reason: Per Protocol Naloxone HCl (Naloxone 0.4 Mg/Ml 1 Ml Vial) 0.2 mg IV Q2M PRN PRN Reason: Opioid Reversal Ondansetron HCl (Ondansetron 4 Mg/2 Ml Vial) 4 mg IVP Q8HR PRN PRN Reason: Nausea And Vomiting Oxcarbazepine (Oxcarbazepine 300 Mg Tab) 600 mg PO BID [facility] Last Admin: 10/06/23 09:01 Dose: 600 mg Oxybutynin Chloride (Oxybutynin Xl 5 Mg Tab.Er.24) 10 mg PO DAILY [facility] Last Admin: 10/06/23 09:01 Dose: 10 mg Oxycodone/Acetaminophen (Oxycodone-Apap 7.5-325mg 1 Each Tab) 1 each PO BID [facility] Last Admin: 10/06/23 09:02 Dose: 1 each Pramipexole Dihydrochloride (Pramipexole 1 Mg Tab) 2 mg PO DAILY PRN PRN Reason: restless legs Pravastatin Sodium (Pravastatin Sodium 20 Mg Tab) 20 mg PO DAILY [facility] Last Admin: 10/06/23 09:01 Dose: 20 mg Past medical history to include: Seizure disorder, osteoarthritis, trigeminal neuralgia, COPD, urinary incontinence, Social history: Lives alone. Does use a walker. Did smoke in the past. No alcohol. Physical examination: VITAL SIGNS: 98.3, 88, 18, 126/68, 95% room air GENERAL: Reclining in bed, some shortness of breath EYES: Pupils equal. Conjunctiva normal. HEENT: External appearance of nose and ears normal, oral cavity grossly normal. NECK: JVD not raised; masses not palpable. HEART: First and second heart sounds are normal; no edema. LUNGS: Respiratory rate increased, diminished breath sounds prolonged expiration , some wheezing;. ABDOMEN: Soft, nontender, liver spleen not palpable, no masses palpable. PSYCH: Alert and oriented x3; mood and affect anxiousl. MUSCULOSKELETAL:No Clubbing/cyanosis;muscles-grossly intact. OA. INVESTIGATIONS, reviewed in the clinical context: October 06: Sodium 136 potassium 5.6 creatinine 0.67 October 04: White count 12.3 hemoglobin 11.3 platelets 173 sodium 132 potassium 3.1 BUN 19 creatinine 0.79 UA: Leukoesterase positive nitrite negative WBC 161 squamous epithelial cells 17 Influenza type A, B, RSV, COVID-19: Not detected EKG tracing personally reviewed by me-normal sinus rhythm. ST segment depression in inferior leads Chest x-ray film personally reviewed by me-some infiltrate Assessment and plan: -Pneumonia suspect gram-negative organism: Slow to respond IV ceftriaxone. -Acute severe COPD exacerbation with chronic bronchitis and a prior smoker: Slow to respond DuoNeb every 4. Perforomist and Pulmicort nebulized. IV Solu-Medrol. No -Hyperkalemia 1 dose of Kayexalate -Recently treated outpatient for UTI Current UTI showing negative for nitrite -Acute on chronic medical debility from above -Chronic medical debility, uses a walker at baseline -Trigeminal neuralgia Trileptal -Muscle spasms Flexeril when necessary -Restless leg syndrome Mirapex when necessary -Primary osteoarthritis multiple joints including lower back Percocet 7.5 twice a day, -Hyperlipidemia Pravachol 20 mg a day -Essential hypertension Lopressor -Full code Continue IV ceftriaxone, IV Solu-Medrol, bronchodilators. 1 dose of Kayexalate. Discussed with patient and granddaughter the bedside. Incentive spirometry. Have the patient sit up on chair as tolerated.
[2023-10-06 17:32] LABS: % Iron Saturation 19.89 (12.00-45.00); Iron 35 UG/DL (50-170); Total Iron Binding Capacity 176 UG/DL (228-460)
[2023-10-07] MEDS: methylPREDNISolone SOD SUCCI 40 MG/ML 1 ML VIAL IV SCH ×3 (06:20→20:19)
[2023-10-07] MEDS: SODIUM CHLORIDE 0.9% 1,000 ML IV SCH ×2 (06:21→20:17)
[2023-10-07] MEDS: oxyCODONE-APAP 7.5-325MG 1 EACH TAB PO SCH ×2 (07:59→20:18)
[2023-10-07] MEDS: PRAVASTATIN SODIUM 20 MG TAB PO SCH (07:59)
[2023-10-07] MEDS: ASPIRIN 81 MG PO SCH (07:59)
[2023-10-07] MEDS: ENOXAPARIN 40 MG/0.4 ML SYRINGE SQ SCH (07:59)
[2023-10-07] MEDS: OXcarbazepine 300 MG TAB PO SCH ×2 (08:00→20:18)
[2023-10-07] MEDS: guaiFENesin 600 MG TABLET.ER PO SCH ×4 (08:00→20:18)
[2023-10-07] MEDS: OXYBUTYNIN XL 5 MG TAB.ER.24 PO SCH (08:00)
[2023-10-07 08:05] LABS: African American GFR (CKD) >90 (>60 ml/min/1.73 sqM); Anion Gap 6 mmol/L; Blood Urea Nitrogen 11 mg/dL (7-17); Calcium 8.4 mg/dL (8.4-10.2); Carbon Dioxide 23 mmol/L (22-30); Chloride 109 mmol/L (98-107); Glucose 120 mg/dL (74-99); Non-African American GFR(CKD) 85 (>60 ml/min/1.73 sqM); Potassium 5.2 mmol/L (3.5-5.1); Sodium 138 mmol/L (137-145)
[2023-10-07] MEDS: IPRATROPIUM-ALBUTEROL 3 ML NEB INHALATION SCH ×4 (08:50→18:29)
[2023-10-07] MEDS: BUDESONIDE 1 MG/2 ML NEBU INHALATION SCH ×2 (08:50→18:29)
[2023-10-07] MEDS: FORMOTEROL FUMARATE 20 MCG/2 ML NEBU INHALATION SCH ×2 (08:50→18:29)
--- NOTE | 2023-10-07 23:34 | P.PN ---
Progress Note - Text Progress Note Date: 10/07/23 Chief Complaint: Short of breath This is a very pleasant 87-year-old patient follows with Dr. Andres Sunshine. Chronic stable medical conditions includes seizures, osteoarthritis particularly in the lower back, trigeminal neuralgia, urinary incontinence. Has a history of COPD with chronic bronchitis. Patient with a baseline has a cough and some shortness of breath. Presents with increasing weakness. Was treated outpatient with antibiotics for his recent UTI. Last 3 days has not really eaten anything. Remains very short of breath. Wheezing. Producing sputum not colored. Denies any obvious fever and chills that started and rundown. Denies any dysuria or urinary frequency currently. Though chronically incontinent October 06: Appears a bit better. Breathing some improvement. The patient herself feels tired. IV ceftriaxone. IV Solu-Medrol. DuoNeb. Eating some. Granddaughter at the bedside. October 07: Some improvement in breathing. But not back to baseline. Continue IV Solu-Medrol IV ceftriaxone DuoNeb. Incentive spirometry. section gang worker looking into possible rehab. Active Medications Hydrocodone Bitart/Acetaminophen (Hydrocodone/Apap 5-325mg 1 Each Tab) 1 each PO Q4HR PRN PRN Reason: Moderate Pain (Scale 4 to 6) Last Admin: 10/05/23 08:02 Dose: 1 each Albuterol/Ipratropium (Ipratropium-Albuterol 3 Ml Neb) 3 ml INHALATION RT-QID [facility] Last Admin: 10/07/23 18:29 Dose: 3 ml Alprazolam (Alprazolam 0.25 Mg Tab) 0.25 mg PO Q6HR PRN PRN Reason: Anxiety Aspirin (Aspirin 81 Mg) 81 mg PO DAILY [facility] Last Admin: 10/07/23 07:59 Dose: 81 mg Budesonide (Budesonide 1 Mg/2 Ml Nebu) 1 mg INHALATION RT-BID [facility] Last Admin: 10/07/23 18:29 Dose: 1 mg Calcium Carbonate/Glycine (Calcium Carbonate 500 Mg Chewable) 1,000 mg PO Q4HR PRN PRN Reason: Dyspepsia Cyclobenzaprine HCl (Cyclobenzaprine 10 Mg Tab) 10 mg PO BID PRN PRN Reason: Muscle Spasm Enoxaparin Sodium (Enoxaparin 40 Mg/0.4 Ml Syringe) 40 mg SQ DAILY [facility] Last Admin: 10/07/23 07:59 Dose: 40 mg Formoterol Fumarate (Formoterol Fumarate 20 Mcg/2 Ml Nebu) 20 mcg INHALATION RT-BID [facility] Last Admin: 10/07/23 18:29 Dose: 20 mcg Guaifenesin (Guaifenesin 600 Mg Tablet.Er) 600 mg PO QID [facility] Last Admin: 10/07/23 20:18 Dose: 600 mg Sodium Chloride (Saline 0.9%) 1,000 mls @ 75 mls/hr IV .[id number] [facility] Last Admin: 10/07/23 20:17 Dose: Not Given Ceftriaxone Sodium 1 gm/ (Sodium Chloride) 50 mls @ 100 mls/hr IVPB Q12HR [facility]; Protocol Last Admin: 10/07/23 20:18 Dose: 100 mls/hr Ibuprofen (Ibuprofen 400 Mg Tab) 400 mg PO Q6HR PRN PRN Reason: Mild Pain or Fever > 100.5 Lactulose (Lactulose 20 Gm/30 Ml Cup) 20 gm PO DAILY PRN PRN Reason: Constipation Melatonin (Melatonin 3 Mg Tablet) 3 mg PO HS PRN PRN Reason: Insomnia Methylprednisolone Sodium Succinate (Methylprednisolone Sod Succi 40 Mg/Ml 1 Ml Vial) 40 mg IV Q8H [facility] Last Admin: 10/07/23 20:19 Dose: 40 mg Miscellaneous Information (Potassium Replacement Protocol 1 Each Misc) 1 each MISCELLANE DAILY PRN; Protocol PRN Reason: Per Protocol Naloxone HCl (Naloxone 0.4 Mg/Ml 1 Ml Vial) 0.2 mg IV Q2M PRN PRN Reason: Opioid Reversal Ondansetron HCl (Ondansetron 4 Mg/2 Ml Vial) 4 mg IVP Q8HR PRN PRN Reason: Nausea And Vomiting Oxcarbazepine (Oxcarbazepine 300 Mg Tab) 600 mg PO BID [facility] Last Admin: 10/07/23 20:18 Dose: 600 mg Oxybutynin Chloride (Oxybutynin Xl 5 Mg Tab.Er.24) 10 mg PO DAILY [facility] Last Admin: 10/07/23 08:00 Dose: 10 mg Oxycodone/Acetaminophen (Oxycodone-Apap 7.5-325mg 1 Each Tab) 1 each PO BID [facility] Last Admin: 10/07/23 20:18 Dose: 1 each Pramipexole Dihydrochloride (Pramipexole 1 Mg Tab) 2 mg PO DAILY PRN PRN Reason: restless legs Pravastatin Sodium (Pravastatin Sodium 20 Mg Tab) 20 mg PO DAILY [facility] Last Admin: 10/07/23 07:59 Dose: 20 mg Past medical history to include: Seizure disorder, osteoarthritis, trigeminal neuralgia, COPD, urinary incontinence, Social history: Lives alone. Does use a walker. Did smoke in the past. No alcohol. Physical examination: VITAL SIGNS: 97.6, 86, 18, 150/76, 97% room air GENERAL: Reclining chair, breathing better EYES: Pupils equal. Conjunctiva normal. HEENT: External appearance of nose and ears normal, oral cavity grossly normal. NECK: JVD not raised; masses not palpable. HEART: First and second heart sounds are normal; no edema. LUNGS: Respiratory rate increased, improvement in air entry prolonged expiration , some wheezing;. ABDOMEN: Soft, nontender, liver spleen not palpable, no masses palpable. PSYCH: Alert and oriented x3; mood and affect anxiousl. MUSCULOSKELETAL:No Clubbing/cyanosis;muscles-grossly intact. OA. INVESTIGATIONS, reviewed in the clinical context: October 07: Potassium 5.2 creatinine 0.57. B12 155 40 and 7.5 and 35 iron binding capacity 176 transferrin 126 ferritin 408 October 06: Sodium 136 potassium 5.6 creatinine 0.67 October 04: White count 12.3 hemoglobin 11.3 platelets 173 sodium 132 potassium 3.1 BUN 19 creatinine 0.79 UA: Leukoesterase positive nitrite negative WBC 161 squamous epithelial cells 17 Influenza type A, B, RSV, COVID-19: Not detected EKG tracing personally reviewed by me-normal sinus rhythm. ST segment depression in inferior leads Chest x-ray film personally reviewed by me-some infiltrate Assessment and plan: -Pneumonia suspect gram-negative organism: Slow to respond IV ceftriaxone. -Acute severe COPD exacerbation with chronic bronchitis and a prior smoker: Slow to respond DuoNeb every 4. Perforomist and Pulmicort nebulized. IV Solu-Medrol. No -Hyperkalemia 1 dose of Kayexalate -Recently treated outpatient for UTI Current UTI showing negative for nitrite -Acute on chronic medical debility from above -Chronic medical debility, uses a walker at baseline -Trigeminal neuralgia Trileptal -Muscle spasms Flexeril when necessary -Iron deficiency anemia 2 doses of IV Ferrlecit -Restless leg syndrome Mirapex when necessary -Primary osteoarthritis multiple joints including lower back Percocet 7.5 twice a day, -Hyperlipidemia Pravachol 20 mg a day -Essential hypertension Lopressor -Full code IV ceftriaxone, IV Solu-Medrol, bronchodilators. Incentive spirometry. Eating at possible rehab. Improving. IV Ferrlecit.
[2023-10-08 05:06] LABS: African American GFR (CKD) >90 (>60 ml/min/1.73 sqM); Anion Gap 4 mmol/L; Blood Urea Nitrogen 12 mg/dL (7-17); Calcium 8.5 mg/dL (8.4-10.2); Carbon Dioxide 23 mmol/L (22-30); Chloride 111 mmol/L (98-107); Glucose 80 mg/dL (74-99); Non-African American GFR(CKD) 81 (>60 ml/min/1.73 sqM); Potassium 4.1 mmol/L (3.5-5.1); Sodium 138 mmol/L (137-145)
[2023-10-08] MEDS: methylPREDNISolone SOD SUCCI 40 MG/ML 1 ML VIAL IV SCH ×2 (05:36→12:56)
[2023-10-08] MEDS ORDERED: SODIUM FERRIC GLUCONAT-SUCROSE 125 MG in SODIUM CHLORIDE 0.9% 100 ML IVPB SCH (09:00)
[2023-10-08] MEDS: IPRATROPIUM-ALBUTEROL 3 ML NEB INHALATION SCH ×3 (09:05→15:35)
[2023-10-08] MEDS: FORMOTEROL FUMARATE 20 MCG/2 ML NEBU INHALATION SCH (09:05)
[2023-10-08] MEDS: BUDESONIDE 1 MG/2 ML NEBU INHALATION SCH (09:06)
[2023-10-08] MEDS: ENOXAPARIN 40 MG/0.4 ML SYRINGE SQ SCH (09:26)
[2023-10-08] MEDS: ASPIRIN 81 MG PO SCH (09:26)
[2023-10-08] MEDS: guaiFENesin 600 MG TABLET.ER PO SCH ×2 (09:27→12:55)
[2023-10-08] MEDS: PRAVASTATIN SODIUM 20 MG TAB PO SCH (09:27)
[2023-10-08] MEDS: OXcarbazepine 300 MG TAB PO SCH (09:27)
[2023-10-08] MEDS: OXYBUTYNIN XL 5 MG TAB.ER.24 PO SCH (09:27)
[2023-10-08] MEDS: oxyCODONE-APAP 7.5-325MG 1 EACH TAB PO SCH (09:33)
[2023-10-08] MEDS ORDERED: DILTIAZEM CD 120 MG CAP.ER.24H PO SCH (12:15)
[2023-10-08] MEDS: SODIUM CHLORIDE 0.9% 1,000 ML IV SCH (12:56)
--- NOTE | 2023-10-08 13:39 | P.DS ---
Providers Date of admission: 10/05/23 14:08 Expected date of discharge: 10/08/23 Attending physician: Jared Alan Primary care physician: Andres Sunshine [facility] Course: Chief Complaint: Short of breath This is a very pleasant 87-year-old patient follows with Dr. Andres Sunshine. Chronic stable medical conditions includes seizures, osteoarthritis particularly in the lower back, trigeminal neuralgia, urinary incontinence. Has a history of COPD with chronic bronchitis. Patient with a baseline has a cough and some shortness of breath. Presents with increasing weakness. Was treated outpatient with antibiotics for his recent UTI. Last 3 days has not really eaten anything. Remains very short of breath. Wheezing. Producing sputum not colored. Denies any obvious fever and chills that started and rundown. Denies any dysuria or urinary frequency currently. Though chronically incontinent October 06: Appears a bit better. Breathing some improvement. The patient herself feels tired. IV ceftriaxone. IV Solu-Medrol. DuoNeb. Eating some. Granddaughter at the bedside. October 07: Some improvement in breathing. But not back to baseline. Continue IV Solu-Medrol IV ceftriaxone DuoNeb. Incentive spirometry. ironing worker looking into possible rehab. October 08: Doing much better. Patient's son at the bedside. Patient now qualified to go to rehab. We'll discharge her short course of Ceftin and prednisone taper. Discussed with the patient and son the patient mentions decreased to rehab and probably needed a more supervised setting. Family looking at the same. Blood pressures been running high. Start Cardizem CD 120 mg a day Discussion and discharge planning more than 35 minutes Past medical history to include: Seizure disorder, osteoarthritis, trigeminal neuralgia, COPD, urinary incontinence, Social history: Lives alone. Does use a walker. Did smoke in the past. No alcohol. Physical examination: VITAL SIGNS: 97.9, 79, 18, 160/88, 98% on 2 L GENERAL: Up in a chair, breathing better EYES: Pupils equal. Conjunctiva normal. HEENT: External appearance of nose and ears normal, oral cavity grossly normal. NECK: JVD not raised; masses not palpable. HEART: First and second heart sounds are normal; no edema. LUNGS: Respiratory rate increased, some improved air entry with mild wheezing;. ABDOMEN: Soft, nontender, liver spleen not palpable, no masses palpable. PSYCH: Alert and oriented x3; mood and affect anxiousl. MUSCULOSKELETAL:No Clubbing/cyanosis;muscles-grossly intact. OA. INVESTIGATIONS, reviewed in the clinical context: October 08: Potassium 4.1-0.67 October 07: Potassium 5.2 creatinine 0.57. B12 155 40 and 7.5 and 35 iron binding capacity 176 transferrin 126 ferritin 408 October 06: Sodium 136 potassium 5.6 creatinine 0.67 October 04: White count 12.3 hemoglobin 11.3 platelets 173 sodium 132 potassium 3.1 BUN 19 creatinine 0.79 UA: Leukoesterase positive nitrite negative WBC 161 squamous epithelial cells 17 Influenza type A, B, RSV, COVID-19: Not detected EKG tracing personally reviewed by me-normal sinus rhythm. ST segment depression in inferior leads Chest x-ray film personally reviewed by me-some infiltrate Assessment and plan: -Pneumonia suspect gram-negative organism: Better IV ceftriaxone. Discharge in Ceftin 5 mg twice a day for 2 days -Acute severe COPD exacerbation with chronic bronchitis and a prior smoker: Better DuoNeb every 4. Perforomist and Pulmicort nebulized. IV Solu-Medrol. Discharge with prednisone taper. -Chronic hypoxic respiratory failure from underlying COPD. Discharge on 2 L -Hyperkalemia 1 dose of Kayexalate -Recently treated outpatient for UTI Current UTI showing negative for nitrite -Acute on chronic medical debility from above -Chronic medical debility, uses a walker at baseline -Trigeminal neuralgia Trileptal -Muscle spasms Flexeril when necessary -Iron deficiency anemia 2 doses of IV Ferrlecit -Restless leg syndrome Mirapex when necessary -Primary osteoarthritis multiple joints including lower back Percocet 7.5 twice a day, -Hyperlipidemia Pravachol 20 mg a day -Essential hypertension Lopressor -Full code Disposition: Subacute rehab Plan - Discharge Summary New Discharge Prescriptions: New predniSONE 10 mg PO DAILY #30 tab cefUROXime axetiL [Ceftin] 500 mg PO BID #4 tab guaiFENesin [Mucinex] 600 mg PO QID tab Budesonide [Pulmicort] 1 mg INHALATION RT-BID #60 ml Diltiazem Cd [Cardizem CD] 120 mg PO DAILY #30 cap Continue Fluticasone Nasal Imperial [Flonase Nasal Imperial] 2 spray EA NOSTRIL DAILY Azelastine HCl [Astelin Nasal Imperial] 1 spray EA NOSTRIL BID Aspirin EC [Ecotrin Low Dose] 81 mg PO DAILY oxyCODONE-APAP 7.5-325MG [Percocet 7.5-325 mg] 1 tab PO BID #6 tab Pravastatin Sodium [Pravachol] 20 mg PO DAILY OXcarbazepine [Trileptal] 600 mg PO BID Tolterodine ER [Detrol LA] 4 mg PO DAILY Pramipexole [Mirapex] 2 mg PO DAILY PRN PRN Reason: restless legs Loratadine [Claritin] 10 mg PO DAILY PRN PRN Reason: Allergy Symptoms Cyclobenzaprine [Flexeril] 10 mg PO BID PRN PRN Reason: Muscle Spasm Changed Ipratropium/Albuter 20-100Mcg [Combivent Respimat 20-100Mcg Inhaler] 1 puff INHALATION QID #0 Discontinued Sulfamethox-Tmp 800-160Mg [Bactrim DS 800-160 mg] 1 tab PO Q12HR atenoloL [Tenormin] 50 mg PO DAILY Discharge Medication List Aspirin EC [Ecotrin Low Dose] 81 mg PO DAILY 10/04/23 [History] Azelastine HCl [Astelin Nasal Imperial] 1 spray EA NOSTRIL BID 10/04/23 [History] Cyclobenzaprine [Flexeril] 10 mg PO BID PRN 10/04/23 [History] Fluticasone Nasal Imperial [Flonase Nasal Imperial] 2 spray EA NOSTRIL DAILY 10/04/23 [History] Loratadine [Claritin] 10 mg PO DAILY PRN 10/04/23 [History] OXcarbazepine [Trileptal] 600 mg PO BID 10/04/23 [History] Pramipexole [Mirapex] 2 mg PO DAILY PRN 10/04/23 [History] Pravastatin Sodium [Pravachol] 20 mg PO DAILY 10/04/23 [History] Tolterodine ER [Detrol LA] 4 mg PO DAILY 10/04/23 [History] Budesonide [Pulmicort] 1 mg INHALATION RT-BID #60 ml 10/08/23 [Rx] Diltiazem Cd [Cardizem CD] 120 mg PO DAILY #30 cap 10/08/23 [Rx] Ipratropium/Albuter 20-100Mcg [Combivent Respimat 20-100Mcg Inhaler] 1 puff INHALATION QID #0 10/08/23 [Rx] cefUROXime axetiL [Ceftin] 500 mg PO BID #4 tab 10/08/23 [Rx] guaiFENesin [Mucinex] 600 mg PO QID tab 10/08/23 [Rx] oxyCODONE-APAP 7.5-325MG [Percocet 7.5-325 mg] 1 tab PO BID #6 tab 10/08/23 [Rx] predniSONE 10 mg PO DAILY #30 tab 10/08/23 [Rx] Follow up Appointment(s)/Referral(s): Andres Sunshine MD [Primary Care Provider] - 1 Week
[2023-10-08 14:02] VITALS: BP 193/75; PULSE 53; RESP 17; TEMP 98.1
== END 2023-10-08 15:35 | DRG 190 ==
LOC: EC 20:03 → 6NMEDSUR 10-05 01:30 → OBSVTOIN 10-05 14:08 → 6NMEDSUR 10-05 15:38 → 5NMEDONC 10-05 17:08
PROVIDERS: ADMIT Hospitalist; ATTEND Hospitalist
DX: J44.0 Chronic obstructive pulmonary disease with (acute) lower respiratory infection (principal); J15.69 Pneumonia due to other Gram-negative bacteria; N39.0 Urinary tract infection, site not specified; E87.1 Hypo-osmolality and hyponatremia; J96.11 Chronic respiratory failure with hypoxia; J44.1 Chronic obstructive pulmonary disease with (acute) exacerbation; I10 Essential (primary) hypertension; Z20.822 Contact with and (suspected) exposure to COVID-19; F17.210 Nicotine dependence, cigarettes, uncomplicated; Z71.6 Tobacco abuse counseling; G50.0 Trigeminal neuralgia; M62.838 Other muscle spasm; G25.81 Restless legs syndrome; M19.91 Primary osteoarthritis, unspecified site; E78.5 Hyperlipidemia, unspecified; D50.9 Iron deficiency anemia, unspecified; E11.649 Type 2 diabetes mellitus with hypoglycemia without coma; E87.5 Hyperkalemia; F41.9 Anxiety disorder, unspecified; G47.00 Insomnia, unspecified; G40.909 Epilepsy, unspecified, not intractable, without status epilepticus; R32 Unspecified urinary incontinence; Z79.82 Long term (current) use of aspirin; Z79.899 Other long term (current) drug therapy; Z87.440 Personal history of urinary (tract) infections; Z88.7 Allergy status to serum and vaccine
CPT/HCPCS: 36415; 71046; 80048; 80053; 81001; 82607; 82728; 82746; 83540; 83550; 83605; 83735; 83880; 85025; 85610; 85730; 87077; 87086; 87186; 87636; 93005; 94640; 94760; 96361; 96365; 96367; 96372; 96375; 99285

== ENCOUNTER 2025-01-25 18:16 | Emergency (ER) | payer MEDICARE, OTHER ==
--- NOTE | 2025-01-25 19:19 | XR ---
EXAMINATION TYPE: XR chest 2V DATE OF EXAM: 01/25/2025 7:11 PM COMPARISON: 10/04/2023 CLINICAL INDICATION: Female, 89 years old with history of covid + c/o weaknes: Shortness of breath TECHNIQUE: XR chest 2V views of the chest are obtained. FINDINGS: Scattered senescent parenchymal changes noted. No evidence for infiltrate. No evidence for atelectasis. Heart size is stable. Mediastinal structures are stable and grossly unremarkable. No evidence for hilar prominence. Degenerative changes dorsal spine. IMPRESSION: 1. No evidence for acute pulmonary disease. [facility], , 01/25/2025 7:17 PM
--- NOTE | 2025-01-25 19:32 | ED ---
URI HPI - General Stated Complaint: covid symptoms Time Seen by Provider: 01/25/25 19:29 Source: patient, family, RN notes reviewed, old records reviewed Mode of arrival: wheelchair Limitations: no limitations - History of Present Illness Initial Comments: 89-year-old female presented the ER for evaluation of fatigue and weakness. Family, at bedside, state patient has chronic sinusitis but over the past 2 to 3 days has had an increase in symptoms. Over the past 2 days patient has been very fatigued and sleeping all day. Daughter reports she had COVID last week and was concerned patient may also be infected and completed at home test today which was COVID-positive. Patient reports she has a cough, congestion, runny nose and mild nausea. Patient has taken [id number] Coricidin without relief of symptoms. She denies any chest pain, shortness of breath/wheezing, abdominal pain, diarrhea/constipation, vomiting or urinary complaints. - Related Data Home Medications Medication Instructions Recorded Confirmed Aspirin EC [Ecotrin Low Dose] 81 mg PO DAILY 10/04/23 10/04/23 Azelastine HCl [Astelin Nasal 1 spray EA NOSTRIL BID 10/04/23 10/04/23 [place]] Cyclobenzaprine [Flexeril] 10 mg PO BID PRN 10/04/23 10/04/23 Fluticasone Nasal [place] [Flonase 2 spray EA NOSTRIL DAILY 10/04/23 10/04/23 Nasal [place]] Loratadine [Claritin] 10 mg PO DAILY PRN 10/04/23 10/04/23 OXcarbazepine [Trileptal] 600 mg PO BID 10/04/23 10/04/23 Pramipexole [Mirapex] 2 mg PO DAILY PRN 10/04/23 10/04/23 Pravastatin Sodium [Pravachol] 20 mg PO DAILY 10/04/23 10/04/23 Tolterodine ER [Detrol LA] 4 mg PO DAILY 10/04/23 10/04/23 Previous Rx's Medication Instructions Recorded Budesonide [Pulmicort] 1 mg INHALATION RT-BID #60 ml 10/08/23 Diltiazem Cd [Cardizem CD] 120 mg PO DAILY #30 cap 10/08/23 Ipratropium/Albuter 20-100Mcg 1 puff INHALATION QID #0 10/08/23 [Combivent Respimat 20-100Mcg Inhaler] cefuroxime axetiL [Ceftin] 500 mg PO BID #4 tab 10/08/23 guaiFENesin [Mucinex] 600 mg PO QID tab 10/08/23 oxyCODONE-APAP 7.5-325MG [Percocet 1 tab PO BID #6 tab 10/08/23 7.5-325 mg] predniSONE 10 mg PO DAILY #30 tab 10/08/23 Nirmatrelvir/Ritonavir [Paxlovid 1 each PO BID #10 each 01/25/25 150-100 mg Dose Pack] Allergies Allergy/AdvReac Type Severity Reaction Status Date / Time acetaminophen [From Tylenol] Allergy Nausea & Verified 01/25/25 18:24 Vomiting Tetanus Vaccines and Toxoid Allergy Unknown Verified 10/04/23 22:57 Childhood Review of Systems ROS Statement: Those systems with pertinent positive or pertinent negative responses have been documented in the HPI. ROS Other: All systems not noted in ROS Statement are negative. Past Medical History Past Medical History: COPD, Osteoarthritis (OA), Seizure Disorder Additional Past Medical History / Comment(s): heart arrhytmia, macular degeneration, steroid injections every 3 months, trigeminal neurolagia History of Any Multi-Drug Resistant Organisms: None Reported Past Surgical History: Joint Replacement Additional Past Surgical History / Comment(s): neck surgery, cataract, L illiac stent, rR hip replacement Past Anesthesia/Blood Transfusion Reactions: No Reported Reaction Past Psychological History: No Psychological Hx Reported Smoking Status: Current every day smoker Past Alcohol Use History: None Reported Past Drug Use History: None Reported General Exam Limitations: no limitations General appearance: alert, in no apparent distress ENT exam: Present: normal exam, normal oropharynx, mucous membranes moist, TM's normal bilaterally Neck exam: Present: normal inspection. Absent: tenderness, meningismus, lymphadenopathy Respiratory exam: Present: normal lung sounds bilaterally. Absent: respiratory distress, wheezes, rales, rhonchi, stridor Cardiovascular Exam: Present: regular rate, normal rhythm, normal heart sounds. Absent: systolic murmur, diastolic murmur, rubs, gallop, clicks GI/Abdominal exam: Present: soft, normal bowel sounds. Absent: distended, tenderness, guarding, rebound, rigid Extremities exam: Present: normal inspection, full ROM, normal capillary refill. Absent: tenderness, pedal edema, joint swelling, calf tenderness Neurological exam: Present: alert, oriented X3, CN II-XII intact Skin exam: Present: warm, dry, intact, normal color. Absent: rash Course Vital Signs 01/25/25 01/25/25 01/25/25 18:20 20:35 21:27 Temperature 98.1 F 99.1 F Pulse Rate 57 L 62 65 Respiratory 20 22 21 Rate Blood Pressure 207/79 254/89 189/75 O2 Sat by Pulse 96 97 Oximetry Medical Decision Making - Medical Decision Making Was pt. sent in by a medical professional or institution (, PA, WEDDING COORDINATOR, urgent care, hospital, or [facility]...) When possible be specific @ -No Did you speak to anyone other than the patient for history (EMS, parent, family, police, friend...)? What history was obtained from this source @ -Family, at bedside, aiding in HPI and past medical history. Did you review nursing and triage notes (agree or disagree)? Why? @ -I reviewed and agree with nursing and triage notes Were old charts reviewed (outside hosp., previous admission, EMS record, old EKG, old radiological studies, urgent care reports/EKG's, [facility] records)? Report findings @ -No old charts were reviewed Differential Diagnosis (chest pain, altered mental status, abdominal pain women, abdominal pain men, vaginal bleeding, weakness, fever, dyspnea, syncope, headache, dizziness, GI bleed, back pain, seizure, CVA, palpatations, mental health, musculoskeletal)? @ -Differential Weakness: Hypoglycemia, shock, sepsis, hyponatremia, anemia, infection, IL, ETOH, adverse medicine reaction, overdose, stroke, this is not meant to be an all-inclusive list. EKG interpreted by me (3pts min.). @ -As above X-rays interpreted by me (1pt min.). @ -CXR interpreted me negative for full consolidation, pneumothorax or pleural effusions. CT interpreted by me (1pt min.). @ -None done U/S interpreted by me (1pt. min.). @ -None done What testing was considered but not performed or refused? (CT, X-rays, U/S, labs)? Why? @ -None What meds were considered but not given or refused? Why? @ -None Did you discuss the management of the patient with other professionals (professionals i.e. , PA, WEDDING COORDINATOR, lab, RT, psych nurse, social welfare administrator, clinical trial assistant, teacher, nuclear officer, porter sample case)? Give summary @ -No Was smoking cessation discussed for >3mins.? @ -No Was critical care preformed (if so, how long)? @ -No Were there social determinants of health that impacted care today? How? (Homelessness, low income, unemployed, alcoholism, drug addiction, transportation, low edu. Level, literacy, decrease access to med. care, [facility], rehab)? @ -No Was there de-escalation of care discussed even if they declined (Discuss DNR or withdrawal of care, Hospice)? DNR status @ -No What co-morbidities impacted this encounter? (DM, HTN, Smoking, COPD, CAD, Cancer, CVA, ARF, Chemo, Hep., AIDS, mental health diagnosis, sleep apnea, morbid obesity)? @ -Advanced age, hypertension Was patient admitted / discharged? Hospital course, mention meds given and route, prescriptions, significant lab abnormalities, going to OR and other pertinent info. @ -Discharge. 89-year-old female presented to the ER for evaluation of fatigue and weakness. Upon arrival, patient is hypertensive with a blood pressure of 207/79 vitals otherwise within acceptable limits. Patient reports she does take atenolol and hydrochlorothiazide daily but has not taken her medications today. Patient resting on stretcher no signs of acute distress. Exam benign. Laboratory studies unremarkable. WBC 6.4. Lactic 1.0. Patient is COVID- positive. CXR negative. Patient given 500 mL IV fluid bolus and 10 mg hydralazine for hypertension in the emergency department with improvement of blood pressure to 189/75 upon discharge. Upon reevaluation, patient resting comfortably on stretcher no signs of acute distress. Results discussed with patient, all questions answered. Paxlovid prescribed. I advised [id number] ibuprofen and plenty of fluids upon discharge. Patient also will be discharged with the Zofran starter pack as she reports mild nausea. Patient successfully passed p.o. challenge. Patient is agreeable and stable for discharge at this time. Strict return parameters discussed. Patient discharged in stable condition with follow-up to PCP. Patient and family, at bedside, verbally expressed understanding and agreement with care plan. Case discussed with ED attending, Dr. Pittman. Undiagnosed new problem with uncertain prognosis? @ -No Drug Therapy requiring intensive monitoring for toxicity (Heparin, Nitro, Insulin, Cardizem)? @ -No Were any procedures done? @ -No Diagnosis/symptom? @ -COVID-19/acute viral sinusitis Acute, or Chronic, or Acute on Chronic? @ -Acute Uncomplicated (without systemic symptoms) or Complicated (systemic symptoms)? @ -Uncomplicated Side effects of treatment? @ -No Exacerbation, Progression, or Severe Exacerbation? @ -No Poses a threat to life or bodily function? How? (Chest pain, [place], IL, pneumonia, PE, COPD, DKA, ARF, appy, cholecystitis, CVA, Diverticulitis, Homicidal, Suicidal, threat to staff... and all critical care pts) @ -No - Lab Data Result diagrams: 01/25/25 20:00 01/25/25 20:00 Lab Results 01/25/25 01/25/25 01/25/25 Range/Units 20:00 20:00 20:00 WBC 6.4 (3.8-10.6) k/uL RBC 3.95 (3.80-5.40) m/uL Hgb 12.7 (11.4-16.0) gm/dL Hct 38.8 (34.0-46.0) % MCV 98.2 (80.0-100.0) fL MCH 32.2 (25.0-35.0) pg MCHC 32.7 (31.0-37.0) g/dL RDW 13.8 (11.5-15.5) % Plt Count 168 (150-450) k/uL MPV 10.5 Neutrophils % 66 % Lymphocytes % 22 % Monocytes % 7 % Eosinophils % 3 % Basophils % 0 % Neutrophils # 4.3 (1.3-7.7) k/uL Lymphocytes # 1.4 (1.0-4.8) k/uL Monocytes # 0.5 (0-1.0) k/uL Eosinophils # 0.2 (0-0.7) k/uL Basophils # 0.0 (0-0.2) k/uL Sodium 135 L (137-145) mmol/L Potassium 3.7 (3.5-5.1) mmol/L Chloride 99 (98-107) mmol/L Carbon Dioxide 30 (22-30) mmol/L Anion Gap 6 mmol/L BUN 17 (7-17) mg/dL Creatinine 0.71 (0.52-1.04) mg/dL Est GFR (CKD-EPI)AfAm 89 (>60 ml/min/1.73 sqM) Est GFR (CKD-EPI)NonAf 77 (>60 ml/min/1.73 sqM) Glucose 99 (74-99) mg/dL Plasma Lactic Acid Cristóbal 1.0 (0.7-2.0) mmol/L Calcium 9.3 (8.4-10.2) mg/dL Total Bilirubin 0.6 (0.2-1.3) mg/dL AST 18 (14-36) U/L ALT 15 (4-34) U/L Alkaline Phosphatase 81 (38-126) U/L Total Protein 6.2 L (6.3-8.2) g/dL Albumin 3.8 (3.5-5.0) g/dL Influenza Type A (PCR) (Not Detectd) Influenza Type B (PCR) (Not Detectd) RSV (PCR) (Not Detectd) SARS-CoV-2 (PCR) (Not Detectd) 01/25/25 Range/Units 20:00 WBC (3.8-10.6) k/uL RBC (3.80-5.40) m/uL Hgb (11.4-16.0) gm/dL Hct (34.0-46.0) % MCV (80.0-100.0) fL MCH (25.0-35.0) pg MCHC (31.0-37.0) g/dL RDW (11.5-15.5) % Plt Count (150-450) k/uL MPV Neutrophils % % Lymphocytes % % Monocytes % % Eosinophils % % Basophils % % Neutrophils # (1.3-7.7) k/uL Lymphocytes # (1.0-4.8) k/uL Monocytes # (0-1.0) k/uL Eosinophils # (0-0.7) k/uL Basophils # (0-0.2) k/uL Sodium (137-145) mmol/L Potassium (3.5-5.1) mmol/L Chloride (98-107) mmol/L Carbon Dioxide (22-30) mmol/L Anion Gap mmol/L BUN (7-17) mg/dL Creatinine (0.52-1.04) mg/dL Est GFR (CKD-EPI)AfAm (>60 ml/min/1.73 sqM) Est GFR (CKD-EPI)NonAf (>60 ml/min/1.73 sqM) Glucose (74-99) mg/dL Plasma Lactic Acid Cristóbal (0.7-2.0) mmol/L Calcium (8.4-10.2) mg/dL Total Bilirubin (0.2-1.3) mg/dL AST (14-36) U/L ALT (4-34) U/L Alkaline Phosphatase (38-126) U/L Total Protein (6.3-8.2) g/dL Albumin (3.5-5.0) g/dL Influenza Type A (PCR) Not Detected (Not Detectd) Influenza Type B (PCR) Not Detected (Not Detectd) RSV (PCR) Not Detected (Not Detectd) SARS-CoV-2 (PCR) Detected A (Not Detectd) - EKG Data -: EKG Interpreted by Me EKG Comments: EKG taken at 20: 06 showing a sinus bradycardia. No ST segment elevations or depressions. No T wave inversions. Ventricular rate 55, LA interval 165, QRS duration 93, QT/QTc 477/465. - Radiology Data Radiology results: report reviewed, image reviewed Disposition Clinical Impression: COVID-19, Acute viral sinusitis Disposition: HOME SELF-CARE Condition: Stable Instructions (If sedation given, give patient instructions): Upper Respiratory Infection (ED) Additional Instructions: You may take ibuprofen for pain control. Take Zofran as prescribed. Take Paxlovid as prescribed. Follow-up closely with PCP. Return to the ER for any new or worsening concerns. Prescriptions: Nirmatrelvir/Ritonavir [Paxlovid 150-100 mg Dose Pack] 1 each PO BID #10 each Is patient prescribed a controlled substance at d/c from ED?: No Referrals: None,Stated [REFERRING] - 1-2 days Forms: Area PCPs Time of Disposition: 21:16
[2025-01-25] MEDS: SODIUM CHLORIDE 0.9% 500 ML 500 ML IV ONE (20:19)
[2025-01-25 20:22] LABS: Basophils % (A) 0 %; Eosinophils # (A) 0.2 k/uL (0-0.7); Eosinophils % (A) 3 %; HCT 38.8 % (34.0-46.0); HGB 12.7 gm/dL (11.4-16.0); Lymphocytes # (A) 1.4 k/uL (1.0-4.8); Lymphocytes % (A) 22 %; MCH 32.2 pg (25.0-35.0); MCHC 32.7 g/dL (31.0-37.0); MCV 98.2 fL (80.0-100.0); Mean Platelet Volume 10.5; Monocytes # (A) 0.5 k/uL (0-1.0); Monocytes % (A) 7 %; Neutrophils # (A) 4.3 k/uL (1.3-7.7); Neutrophils % (A) 66 %; Platelet Count 168 k/uL (150-450); RBC 3.95 m/uL (3.80-5.40); RDW 13.8 % (11.5-15.5); WBC 6.4 k/uL (3.8-10.6)
[2025-01-25 20:34] LABS: ALT 15 U/L (4-34); AST 18 U/L (14-36); African American GFR (CKD) 89 (>60 ml/min/1.73 sqM); Albumin 3.8 g/dL (3.5-5.0); Alkaline Phosphatase 81 U/L (38-126); Anion Gap 6 mmol/L; Blood Urea Nitrogen 17 mg/dL (7-17); Calcium 9.3 mg/dL (8.4-10.2); Carbon Dioxide 30 mmol/L (22-30); Chloride 99 mmol/L (98-107); Glucose 99 mg/dL (74-99); Non-African American GFR(CKD) 77 (>60 ml/min/1.73 sqM); Potassium 3.7 mmol/L (3.5-5.1); Sodium 135 mmol/L (137-145); Total Bilirubin 0.6 mg/dL (0.2-1.3); Total Protein 6.2 g/dL (6.3-8.2)
[2025-01-25] MEDS: hydrALAZINE HCL 20 MG/ML 1 ML VIAL IVP STA (20:56)
[2025-01-25 20:57] LABS: Influenza A Not Detected (Not Detectd); Influenza B Not Detected (Not Detectd); RSV Not Detected (Not Detectd)
[2025-01-25] MEDS: IBUPROFEN 600 MG TAB PO STA (21:23)
[2025-01-25 21:29] VITALS: BP 189/75; PULSE 65; RESP 21; TEMP 99.1
[2025-01-25] MEDS: ONDANSETRON 4 MG ODT STARTER PACK 2 TAB BTL PO STA (21:29)
== END 2025-01-25 21:48 | disposition home or self-care (01) ==
LOC: EC 18:16
DX: U07.1 COVID-19 (principal); J01.90 Acute sinusitis, unspecified; R00.1 Bradycardia, unspecified; I10 Essential (primary) hypertension; F17.200 Nicotine dependence, unspecified, uncomplicated
CPT/HCPCS: 36415; 93005; 80053; 83605; 85025; 87636; 71046; 99285; 96374; 96361; J0360; S0119